=== PATIENT | female | born 2000 | race Caucasian/White ===

== ENCOUNTER 2024-11-04 18:25 | Emergency (ER) | payer OTHER, SELFPAY ==
[2024-11-04 18:33] VITALS: BP 116/65; PULSE 108; RESP 14; TEMP 37.6; O2SAT 100
[2024-11-04 18:55] LABS: EDCOVIDSCREEN Negative (Negative); EDINFLUASCREEN Negative (Negative); EDINFLUBSCREEN Negative (Negative); EDSTREPNEGPOS1 Positive (Negative)
--- NOTE | 2024-11-04 19:00 | ED.URI ---
HPI - URI/Sore Throat General Chief Complaint: Upper Respiratory Infection Stated Complaint: Fever / Sore throat Time Seen by Provider: 11/04/24 18:45 Source: patient Mode of arrival: ambulatory Limitations: no limitations History of Present Illness HPI Narrative: 24-year-old female presents with complaint of sore throat, fatigue, headache, chills for 2 days. Patient is 13 weeks . All systems reviewed and negative except as noted above. Related Data Home Medications ?Medication ?Instructions ?Recorded ?Confirmed ?Last Taken ?Type JAG-coba-XW-[id number] 3 fatty no.1 27 cap PO DAILY 11/04/24 Unknown History mg-1 mg-300 mg capsule escitalopram oxalate 20 mg tablet mg 11/04/24 Unknown History Allergies Allergy/AdvReac Type Severity Reaction Status Date / Time No Known Allergies Allergy Verified 11/04/24 18:31 PMF Comments At time of signature, agree with nursing past medical, surgical, social and family history. There is no relevant family history pertinent to the presenting complaint. Exam Narrative: GENERAL: This is a well-nourished, well-developed patient, Ill-appearing but no acute distress HEAD: normocephalic, atraumatic. EYES: PERRL. Sclera clear/white. Vision is grossly intact. EARS: External ears normal, auditory canals clear and without drainage, TMs normal without perforation. Hearing grossly intact. NOSE: External nose normal with no obvious nasal discharge, nares without redness, no rhinorrhea. THROAT: Mucous membranes moist, Erythematous with mild swelling. No exudates. NECK: Neck supple, non-tender without lymphadenopathy, masses or thyromegaly. CARDIOVASCULAR: Regular rate and rhythm without murmurs, gallops, or rubs. RESPIRATORY: Clear to auscultation. Breath sounds equal bilaterally. No wheezes, rales, or rhonchi. SKIN: warm, Dry, intact with no suspicious lesions or rash, good texture and turgor. NEURO: awake, alert, and oriented to person, place and time. There were no obvious focal neurologic abnormalities. EXTREMITIES: No joint tenderness, effusion, or edema noted. Course Course Level of Care: Express Care Visit Vital Signs Vital signs: Vital Signs Temperature 37.6 C H 11/04/24 18:33 Pulse Rate 108 H 11/04/24 18:33 Respiratory Rate 14 11/04/24 18:33 Blood Pressure 116/65 09/15/25 18:33 Pulse Oximetry 100 11/04/24 18:33 Oxygen Delivery Room Air 11/04/24 18:33 Temperature 37.6 C H 11/04/24 18:33 Pulse Rate 108 H 11/04/24 18:33 Respiratory Rate 14 11/04/24 18:33 Blood Pressure 116/65 11/04/24 18:33 Pulse Oximetry 100 11/04/24 18:33 Oxygen Delivery Room Air 11/04/24 18:33 reviewed MDM - URI/Sore Throat MDM Narrative Medical decision making narrative: positive rapid strep. Will treat with amoxicillin. Patient is well-appearing, nontoxic. Differential Diagnosis Differential diagnosis: Likely upper respiratory infection, sinusitis, viral infection and pharyngitis Lab Data Labs: Lab Results 11/04/24 Range/Units 18:52 POC Influenza A Ag Negative (Negative) POC Influenza B Ag Negative (Negative) POC SARS CoV-2 Ag Negative (Negative) POC Grp A Strep Screen Positive (Negative) Discharge Plan Discharge Clinical Impression: Strep throat Patient Disposition: Home Condition: Stable Instructions: Antibiotic Form, Strep Throat (ED) Additional Instructions: your strep test was positive today. Take antibiotic as prescribed until gone. Change toothbrush after taking antibiotic for 24 hours. Take Tylenol every 6-8 hours as needed for pain and fever. Drink at least 64 oz of water a day. See your doctor symptoms are not improving. Patient Language: Japanese Prescriptions: New amoxicillin 500 mg capsule 500 mg PO Q12H 10 Days Qty: 20 0RF No Action escitalopram oxalate 20 mg tablet [id number] 3 fatty no.1 27-1-300 mg capsule PO DAILY Follow-up/Referrals: Regina,Wendy Durán APRN [Primary Care Provider, Unknown] Time of Disposition: 18:55
--- OUTSIDE RECORDS SUMMARY | 2024-11-04 19:18 | XMS_ITS | Encounter Summary ---
Author Organization [facility] Address [address] [place] [address] Care Team Providers Care Rotary Operator Name Role Phone Lois Slater [facility] Primary Care Provider + Wendy Tapia APRN Primary Care Provider [phone]- [phone] Encounter Details Date Type Department Care Team (Latest Contact Info) Description 12/26/2017 Abstract [facility] , Adrienne Garcia MD Social History Tobacco Use Types Packs/Day Years Used Date Smoking Tobacco: Never Assessed Comments Unknown Sex and Gender Information Value Date Recorded Sex Assigned at Female 05/23/2024 12:47 PM CDT Legal Sex Female 7:17 PM CDT Gender Identity Not on file Sexual Orientation Not on file documented as of this encounter Plan of Treatment Not on file documented as of this encounter Visit Diagnoses Not on filedocumented in this encounter Care Teams Rotary Operator Relationship Specialty Start Date End Date Lois Slater [facility] PCP - General Nurse Practitioner Family 05/22/2405/27 Wendy Tapia APRN [id number] [facility] [address] [place] [id number] PCP - General NURSE PRACTITIONER 05/28/24 documented as of this encounter
--- OUTSIDE RECORDS SUMMARY | 2024-11-04 19:18 | XMS_ITS | Encounter Summary ---
Author Organization [facility] Address [address] [place] [address] Care Team Providers Care Waste Reduction Coordinator Name Role Phone Wendy Tapia APRN Primary Care Provider +1- [phone] Encounter Details Date Type Department Care Team (Late st Contact Info) Description 06/14/2024 [email or web address] Message Enc [facility] Medical [facility] Family & Internal Medicine [facility] [address] [place] [address] Wendy Tapia APRN [address] [facility] [address] [place] [address] UTI Social History Tobacco Use Types Packs/Day Years Used Date Smoking Tobacco: Never Smokeless Tobacco: Never Alcohol Use Standard Drinks/Week Comments Yes 0 (1 standard drink = 0.6 oz pur e alcohol) PHQ-2 Answer Date Recorded Patient Health Questionnaire-2 Score 1 05/28/2024 Comments No Sex and Gender Information Value Date Recorded Sex Assigned at Female 05/23/2024 12:47 PM CDT Legal Sex Female 7:17 PM CDT Gender Identity Not on file Sexual Orientation Not on file documented as of this encounter Plan of Treatment Not on file documented as of this encounter Visit Diagnoses Not on filedocumented in this encounter Additional Health Concerns Assessment Noted Time PHQ-9 Depression Total Score: 7 05/29/19 25 2:07 PM CDT documented as of this encounter Care Teams Waste Reduction Coordinator Relationship Specialty Start Date End Date Wendy Tap[facility] [address] [facility] [address] [place] [address] PCP - General NURSE PRACTITIONER 05/28/24 documented as of this encounter
--- OUTSIDE RECORDS SUMMARY | 2024-11-04 19:18 | XMS_ITS | Clinical Summary ---
Author Organization [facility] Address [address] [place] [address] Care Team Providers Care Nuclear Physician Name Role Phone Wendy Tapia APRN Primary Care Provider [phone]- [phone] Allergies No known active allergies Medications MV-Min-Fe Fum-FA-DHA ( 1 OR) Acti ve escitalopram (LEXAPRO) 20 MG tabletIndications: Anxiety,Moderate episode of recurrent major depressive disorder (CMS/HCC) Take 1 tablet (20 mg total) by mouth daily. 90 tablet 3 Active norethindrone-ethi nyl estradiol ([facility] 03/11) 1-20 MG-MCG tabletIndications: Encounter for initial prescription of contraceptive pills Take 1 tablet by mouth daily. 84 tablet 3 5 10/26/19 25 Discontinu ed(Ineffec tive) escitalopram (LEXAPRO) 20 MG tabletIndications: Anxiety,Moderate episode of recurrent major depressive disorder (CMS/HCC) Take 1 tablet (20 mg total) by mouth daily. 90 tablet 3 5 10/26/19 25 Discontinu ed(Reorder ) Active Problems Problem Noted Date Diagnosed Date Moderate episode of recurrent major depressive d isorder 09/02/2024 Anxiety 09/02/2024 Comments Yes Encounters Date Type Department Care Team Description 10/25/2024 1:00 PM CDT Office Visit [facility] Family & Internal Medicine [address] [phone] Wendy Tapia APRN Follow Up (Medication refills) 10/25/2024 Travel 09/02/2024 2:20 PM CDT Office Visit [facility] Family & Internal Medicine [facility] [id number] [place] [phone] Wendy Tapia APRN Follow Up (Medication refills); Menstrual Problem (Irregular periods) 09/02/2024 Travel from Last 3 Months Immunizations Immunization Administration Dates Next Due DTaP/Hib (TriHIbit) 06/04/2002 Dtap (Acel-Immune) 03/31/2006,2001, 002,2001 Flumist (Intranasal) 11/14/2012 H1N1 Intranasal 2009 Influenza 03/19/2009,2008 HPV4 (Gardasil) 03/21/2013,11/14/2012,09/12/2012 Hepatitis A (Generic) 10/05/2006,03/31/2006 Hepatitis B Pediatric 03/11/2002,2001,02/20 Hib (Generic) 2001,2001,2001 Influenza (Generic) 01/08/2009,03/06/2003,2002 MMR (MMRII) 06/04/2002 Meningococcal (Menactra) 09/12/2012 Pneumococcal (Prevnar 13) 06/04/2002 Pneumococcal (Prevnar 7) 2001,2001,0 2001 Polio IPV (Ipol) 03/31/2006,03/11/2002, 2,2001 Tdap (Generic) 09/12/2012 Varicella (Varivax) 03/11/2002 Varicella/MMR (Proquad) 03/31/2006 Social History Tobacco Use Types Packs/Day Years Used Date Smoking Tobacco: Never Smokeless Tobacco: Never Tobacco Cessation:Counseling Given: No Alcohol Use Standard Drinks/Week Comments Yes 0 (1 standard drink = 0.6 oz pur e alcohol) PHQ-2 Answer Date Recorded Patient Health Questionnaire-2 Score 1 05/28/2024 Comments Yes Sex and Gender Information Value Date Recorded Sex Assigned at Female 05/23/2024 12:47 PM CDT Legal Sex Female 7:17 PM CDT Gender Identity Not on file Sexual Orientation Not on file Last Filed Vital Signs Vital Sign Reading Time Taken Comments Blood Pressure 108/68 10/25/2024 1:14 PM CDT Pulse 73 10/25/2024 1:14 PM CDT Temperature 36.9 C (98.4 F) 10/25/2024 1:14 PM CDT Respiratory Rate 18 10/25/2024 1:14 PM CDT Oxygen Saturation 100% 10/25/2024 1:14 PM CDT Inhaled Oxygen Concentration - - Weight 66.7 kg (147 lb) 10/25/2024 1:14 PM CDT Height 154.9 cm (5' 1) 10/25/2024 1:14 PM CDT Body Mass Index 27.78 10/25/2024 1:14 PM CDT Plan of Treatment Health Maintenance Due Date Last Done Comments DTaP, Tdap and Td Vaccines (7 - Td or Tdap) 02/28/2025 09/12/2012, 03/31/2006, 06/04/2002, Additional history exists Postponed from 09/12/2022 (Future Appointment) Meningococcal B Vaccine (1 of 2 - Standard) 05/28/2025 Postponed from 2017 (Future Appointment) Annual Physical 09/02/2025 09/02/2024 Chlamydia Screening Females ages 16-24 10/07/2025 10/07/2024 COVID-19 Vaccine ( - season) 2025 Postponed from 10/21/2024 (Patient Refused) Cervical Cancer Screening Pap Smear (Age 21 to 29) Every 3 Years 10/08/2027 10/07/2024, 10/07/2024 Cervical Cancer Screening 10/08/2027 Hepatitis C 05/28/2029 Postponed from 2019 (Patient Refused) RSV Immunization or 60+ Years (1 - 1-dose 75+ series) 2076 Hepatitis B Vaccines Completed 03/11/2002, 2001, 2001 Pneumococcal Vaccine: Pediatrics (0 to 5 Years) and At-Risk Patients (6 to 49 Years) Completed 06/04/2002, 2001, 2001, Additional history exists Meningococcal Vaccine Aged Out 09/12/2012 No mag augustina eligible based on patient's age to complete this topic HPV Vaccines Completed 03/21/2013, 10/22, 09/12/2012 PHQ-2 (Physician [place]) Completed 05/28/2024 RSV Immunizations Under 20 Months Aged Out No longer eligible based on patient's age to complete this topic Insurance R Care Teams Nuclear Physician Relationship Specialty Start Date End Date Wendy Tapia APRN [id number] [address] PCP - General NURSE PRACTITIONER 05/28/24
== END 2024-11-04 18:58 | disposition home or self-care (01) ==
PROVIDERS: Emergency Provider Nurse Practitioner Family; PCP Registered Nurse
DX: O99.511 Diseases of the respiratory system complicating pregnancy, first trimester (principal); Z3A.13 13 weeks gestation of pregnancy; J02.0 Streptococcal pharyngitis; Z20.822 Contact with and (suspected) exposure to COVID-19
CPT/HCPCS: 87426; 87804; 87880; 99203; G0463